=== PATIENT | male | born 1940 | race Caucasian/White ===

== ENCOUNTER 2022-06-12 15:41 | Emergency (ER) | payer OTHER ==
[~2022-06-12] VITALS: Ht 177.8 cm; Wt 70.3 kg
[2022-06-12 15:45] VITALS: BP_SYST 124
[2022-06-12] MEDS ORDERED: NACL 0.9% 1,000 ML IV ONE (16:00)
--- NOTE | 2022-06-12 16:25 | NUR ---
PT BROUGHT TO ED VIA EMS FROM HOME. PT HAD SYNCOPAL EPISODE, STATES THAT HE HAD BEEN TO THE BR AND WAS WALKING TO THE KITCHEN FELT INCREASED WEAKNESS AND FELL, STATES WAS OUT BRIEFLY. FALL WAS UNWITNESSED. PER EMS PT WAS AWAKE AND ALERT ON THEIR ARRIVAL, B/P WAS 96/60. PT HAS HAS HTN AND HAD ANNE PLACED 2 WEEKS AGO FOR PROSTATE ENLARGEMENT. STATES HAS BEEN FEELING WEAK FOR A COUPLE WEEKS. PT HAS 18G IN LAC PLACED BY EMS. PT PLACED IN ROOM, ATTACHED TO MONITOR.
--- NOTE | 2022-06-12 16:26 | NUR ---
EKG DONE BY TECH
--- NOTE | 2022-06-12 16:28 | NUR ---
ER at bedside examining patient.
--- NOTE | 2022-06-12 16:43 | NUR ---
EKG ADMINISTERED BY LYNDSAY CHACKO AND GIVEN TO DR. MCDANIEL FOR INTERP.
[2022-06-12 16:53] LABS: BASOPHILS % (AUTO) 0.2 % (0.0-2.0); EOSINOPHILS # (AUTO) 0.3 K/uL (0.0-0.4); EOSINOPHILS % (AUTO) 5.2 % (0.0-4.0); HEMATOCRIT 27.7 % (36-54); HEMOGLOBIN 9.1 g/dL (14.0-18.0); LYMPHOCYTES # (AUTO) 0.8 K/uL (1.0-5.5); LYMPHOCYTES % (AUTO) 13.2 % (20.5-51.5); MEAN CORPUSCULAR HEMOGLOBIN 29 pg (27-31); MEAN CORPUSCULAR HGB CONC 33 % (32-36); MEAN CORPUSCULAR VOLUME 89 fL (79.0-98.0); MONOCYTES # (AUTO) 0.3 K/uL (0.0-1.0); NEUTROPHILS # (AUTO) 4.3 K/uL (1.8-7.7); NEUTROPHILS % (AUTO) 75.4 % (40.0-70.0); PLATELET COUNT (AUTO) 167 K/uL (130-430); RED BLOOD CELL COUNT(AUTO) 3.11 MIL/uL (4.2-6.2); RED CELL DISTRIBUTION WIDTH 16.5 % (9.0-15.0); WHITE BLOOD COUNT (AUTO) 5.7 K/uL (4.8-10.8)
[2022-06-12 17:12] LABS: ANION GAP 10 (5-15); CALCIUM 8.5 mg/dL (8.4-11.0); CHLORIDE 105 mmol/L (98-107); CREATININE 2.87 mg/dL (0.55-1.30); GLUCOSE 142 mg/dL (70-99); POTASSIUM 4.3 mmol/L (3.5-5.1); UREA NITROGEN, BLOOD 46 mg/dL (8-21)
[2022-06-12 17:27] LABS: ALANINE AMINOTRANSFERASE 7 U/L (12-78); ALBUMIN 2.9 g/dL (3.4-4.8); ASPARTATE AMINOTRANSFERASE 14 U/L (10-37); TOTAL BILIRUBIN 0.3 mg/dL (0.0-1.0)
--- NOTE | 2022-06-12 17:30 | NUR ---
Pt reports that he has been experiencing difficulty having bowel movements, last BM 3 days ago. Patient states that he took a laxative that "starts with an s" this morning and spent most of the morning trying to have a BM. States he was in and out of the bathroom 3x trying to pass stool. He was walking from the bathroom when he "passed out".
--- NOTE | 2022-06-12 19:05 | NUR ---
Patient given written and verbal discharge instructions and verbalizes understanding. ER MD discussed with patient the results and treatment provided. Patient in stable condition. ID arm band removed. IV catheter removed intact and dressing applied, no active bleeding. Patient educated on pain management and to follow up with PMD. Pain Scale . Opportunity for questions provided and answered. Medication side effect fact sheet provided.
[2022-06-12 19:08] VITALS: BP_SYST 106
== END 2022-06-12 19:08 | disposition home or self-care (01) ==
LOC: SED 15:41
DX: R55 Syncope and collapse (principal); I12.9 Hypertensive chronic kidney disease with stage 1 through stage 4 chronic kidney disease, or unspecified chronic kidney disease; N18.9 Chronic kidney disease, unspecified; R53.1 Weakness; Z79.899 Other long term (current) drug therapy
CPT/HCPCS: 99285; 96360; 70450; 71045; 80053; 82550; 85025; 84484; 36415; 93005; 76376; 83605; J7030

== ENCOUNTER 2023-02-17 10:45 | Day surgery (SDC) | payer OTHER ==
[~2023-02-17] VITALS: Ht 177.8 cm; Wt 74.8 kg
[~2023-02-17 10:45] MED LIST: CEFAZOLIN SOD 2 GM in D5W 50 ML IV ONE
[2023-02-17] MEDS ORDERED: BUPIVACAINE /PF 0.25% 30 ML VIAL INJ ONE (13:28)
[2023-02-17] MEDS ORDERED: DEXAMETHASONE SOD PHOSPHATE 4 MG/ML VIAL ONE (13:28)
[2023-02-17] MEDS ORDERED: NS IRRIG SOLN 1000 ML IR ONE ×2 (13:28)
[2023-02-17] MEDS ORDERED: ISOFLURANE 15 MIN GAS INH ONE (13:28)
[2023-02-17] MEDS ORDERED: ONDANSETRON HCL 4 MG/2 ML VIAL ONE (13:28)
[2023-02-17] MEDS ORDERED: fentaNYL CITRATE/PF 100 MCG/2 ML AMP ONE (13:28)
[2023-02-17] MEDS ORDERED: PROPOFOL 200MG/ 20ML VIAL (DIPRIVAN) IV ONE (13:28)
[2023-02-17] MEDS ORDERED: ACETAMINOPHEN I.V. 1000 MG 100 ML IV ONE (13:49)
[2023-02-17] MEDS ORDERED: ONDANSETRON HCL 4 MG/2 ML VIAL IVP PRN (14:00)
[2023-02-17] MEDS ORDERED: MORPHINE 4 MG INJ. 4 MG/ML VIAL IVP PRN ×3 (14:00)
[2023-02-17] MEDS ORDERED: HYDROcodone/ACETAMIN 5-325 MG TAB (NORCO/ VICODIN) PO PRN ×2 (15:15)
[2023-02-17] MEDS ORDERED: D5/0.45 NS 1,000 ML IV SCH (16:00)
[2023-02-17 17:36] VITALS: BP_SYST 144
== END 2023-02-17 17:32 | disposition home or self-care (01) ==
LOC: SDS 10:45 → SMU 10:46 → SDS 17:32
PROVIDERS: ATTEND Colon & Rectal Surgery
DX: K40.30 Unilateral inguinal hernia, with obstruction, without gangrene, not specified as recurrent (principal); I12.9 Hypertensive chronic kidney disease with stage 1 through stage 4 chronic kidney disease, or unspecified chronic kidney disease; N18.4 Chronic kidney disease, stage 4 (severe); M10.9 Gout, unspecified; I73.9 Peripheral vascular disease, unspecified; F17.210 Nicotine dependence, cigarettes, uncomplicated; Z79.899 Other long term (current) drug therapy; Z96.649 Presence of unspecified artificial hip joint
CPT/HCPCS: 87081; 49507; C1781; J3490; J0690; J1100; J2405; J2704; J3010; J7060; J0131